=== PATIENT | female | born 1980 | race Caucasian/White ===

== ENCOUNTER 2018-06-13 07:42 | Outpatient (CLI) | payer OTHER | END 2018-06-13 07:59 | disposition home or self-care (01) | LOC: LAB 07:42 | DX: K42.9 Umbilical hernia without obstruction or gangrene (principal); Z01.810 Encounter for preprocedural cardiovascular examination; Z01.812 Encounter for preprocedural laboratory examination ==

== ENCOUNTER 2018-06-24 06:05 | Day surgery (SDC) | payer OTHER ==
[2018-06-24] MEDS ORDERED: ULTRACET PO (09:30)
[2018-06-24] MEDS ORDERED: SURFAK240 M1 PO (09:30)
[2018-06-24] MEDS ORDERED: ZANTAC300 MG PO (09:31)
[2018-06-24] MEDS ORDERED: CIPRO500 MG PO (09:32)
== END 2018-06-24 13:55 | disposition home or self-care (01) ==
LOC: CIR.AMB 06:05
DX: K42.9 Umbilical hernia without obstruction or gangrene (principal); D23.5 Other benign neoplasm of skin of trunk

== ENCOUNTER 2019-08-18 08:03 | Outpatient (CLI) | payer OTHER ==
[~2019-08-18 08:03] MED LIST: CIPRO500 MG PO; SURFAK240 M1 PO; ULTRACET PO; ZANTAC300 MG PO
== END 2019-08-18 08:11 | disposition home or self-care (01) ==
LOC: LAB 08:03
DX: E03.8 Other specified hypothyroidism (principal); K42.1 Umbilical hernia with gangrene; K58.0 Irritable bowel syndrome with diarrhea; E55.9 Vitamin D deficiency, unspecified